=== PATIENT | female | born 1930 | race Caucasian/White ===

== ENCOUNTER 2016-10-07 01:22 | Inpatient (IN) | payer MEDICARE, MEDICAID ==
[~2016-10-07] VITALS: Ht 162.6 cm; Wt 101.6 kg
[~2016-10-07 01:22] MED LIST: ACET-868 GT; ACET500C21 GT; ALBU2.5V11 MC; ATRO2DRO4 RIGHTEYE; BRIM5DRO LEFTEYE; CHLO118M MM; DOCU50LI GT; FAMO-131 GT; HEPA500013 SQ; HYDR-4075 GT; IPRA0.2S18 IH; METO25TA6 GT; MULT-74 GT; PRED5TAB46 OP; SIMV10TA2 GT
[2016-10-07] MEDS ORDERED: DIATR MEGLU/DIATRIZOATE SODIUM 30 ML BOTTLE (GASTROGRAPHIN) ONE (01:25)
[2016-10-07 02:18] LABS: BASOPHILS % (AUTO) 0.2 % (0.0-2.0); DIFF TOTAL % 100 %; EOSINOPHILS # (AUTO) 0.2 /CMM (0.0-0.7); HEMATOCRIT 30 % (33-45); LYMPHOCYTES % (AUTO) 18.2 % (20.0-44.0); MEAN CORPUSCULAR HEMOGLOBIN 31 PG (26.0-33.0); MEAN CORPUSCULAR HGB CONC 33 g/dl (31.0-36.0); MEAN CORPUSCULAR VOLUME 92 fL (82-100); MONOCYTES # (AUTO) 1.5 /CMM (0.1-1.30); MONOCYTES % (AUTO) 8.9 % (2.0-12.0); NEUTROPHILS # (AUTO) 11.8 /CMM (1.8-8.9); NEUTROPHILS % (AUTO) 71.7 % (43.0-81.0); PLATELET COUNT (AUTO) 253 /CMM (150-450); RED BLOOD CELL COUNT(AUTO) 3.27 MIL/uL (4.0-5.2); WHITE BLOOD COUNT (AUTO) 16.5 K/uL (4.3-11.0)
[2016-10-07 02:26] LABS: CALCIUM, SERUM 9.9 mg/dL (8.5-10.1); POTASSIUM 4.3 mmol/L (3.5-5.1)
[2016-10-07] MEDS ORDERED: INSU100V7 SQ (02:57)
[2016-10-07] MEDS ORDERED: OMEP40CA37 GT (02:57)
[2016-10-07] MEDS ORDERED: FERR220S3 GT (02:57)
[2016-10-07] MEDS ORDERED: METO-295 GT (02:57)
[2016-10-07] MEDS ORDERED: LATANOPROST LEFTEYE (02:57)
[2016-10-07] MEDS ORDERED: SITA100T GT (02:57)
[2016-10-07] MEDS ORDERED: NUT.250L18 GT (02:57)
[2016-10-07] MEDS ORDERED: POTA-88 GT (02:57)
[2016-10-07] MEDS ORDERED: LORA2VIA11 IM (02:57)
[2016-10-07] MEDS ORDERED: ACET160E13 GT ×2 (02:57)
[2016-10-07] MEDS ORDERED: ALBU2.5V38 INH (03:12)
[2016-10-07] MEDS ORDERED: INSU100V28 IJ (03:12)
[2016-10-07] MEDS ORDERED: ERYTHROMYCIN GT (03:12)
[2016-10-07] MEDS ORDERED: SIME80TA15 GT (03:35)
[2016-10-07] MEDS ORDERED: MINERAL GT (03:35)
[2016-10-07] MEDS ORDERED: METO5TAB87 GT (03:35)
[2016-10-07] MEDS ORDERED: MULT-30 GT (03:35)
[2016-10-07] MEDS ORDERED: AMIN30LI27 GT (03:35)
[2016-10-07] MEDS ORDERED: VITAMIN GT (03:35)
[2016-10-07 04:33] VITALS: BP 100/68
[2016-10-07] MEDS ORDERED: ZOLPIDEM TARTRATE 5 MG TABLET GT PRN (05:30)
[2016-10-07] MEDS ORDERED: ACETAMINOPHEN 325 MG TABLET PO PRN (05:30)
[2016-10-07] MEDS ORDERED: ONDANSETRON HCL/PF 4 MG/2 ML VIAL IVP PRN (05:30)
[2016-10-07] MEDS: BLOOD SUGAR DIAGNOSTIC 1 EACH STRIP IN SCH ×3 (05:54→17:19)
[2016-10-07] MEDS ORDERED: hydrALAZINE HCL 10 MG TABLET GT PRN (06:00)
[2016-10-07] MEDS ORDERED: DEXTROSE 50%-WATER 50 ML DISP.SYRIN IV PRN (06:00)
[2016-10-07] MEDS ORDERED: ALBUTEROL FS 2.5 MG/3 ML VIAL.NEB INH PRN (06:00)
[2016-10-07] MEDS ORDERED: IPRATROPIUM NEB FS 0.5 MG/2.5 ML AMPUL.NEB IH PRN (06:00)
[2016-10-07] MEDS ORDERED: LEVOFLOXACIN 500 MG /D5W 100ML 100 ML IV ONE (06:08)
[2016-10-07] MEDS ORDERED: IV SET PRIMARY PUMP SET 1 EA INFUS.SET MC ONE (06:11)
[2016-10-07] MEDS ORDERED: IV D5/ 0.9% NACL 1,000 ML IV ONE (06:11)
[2016-10-07] MEDS ORDERED: SECONDARY IV SET 1 EA INFUS.SET MC ONE (06:25)
[2016-10-07] MEDS: LEVOFLOXACIN 500 MG /D5W 100ML 100 ML IV SCH (06:32)
[2016-10-07] MEDS: IV D5/ 0.9% NACL 1,000 ML IV PRN ×2 (06:33→21:14)
[2016-10-07] MEDS ORDERED: PANTOPRAZOLE 40 MG TABLET.DR PO SCH (09:00)
[2016-10-07 09:08] LABS: IRON, SERUM 21 ug/dl (50-175); PERCENT SATURATION 8 % (14-33); TOTAL IRON BINDING CAPACITY 250 ug/dl (250-450)
[2016-10-07 10:17] LABS: ABG BASE EXCESS 10.5 mmol/L; ABG HCO3 35.6 mmol/L; ABG PO2 65.1 mmHg (75.0-100.0); ABG TOTAL HEMOGLOBIN 10.7 G/dL (12.0-16.0); ALLEN TEST Pass; AaDO2 162.6 mmHg; O2Hb 90.2 % (94.0-97.0)
[2016-10-07] MEDS: METOPROLOL TARTRATE 25 MG TABLET GT SCH ×2 (10:30→16:33)
[2016-10-07] MEDS: INSULIN REGULAR, HUMAN 100 UNIT/ML 3 ML VIAL SQ PRN ×2 (11:39→17:19)
[2016-10-07] MEDS ORDERED: METOCLOPRAMIDE HCL 10 MG/10 ML UDC GT SCH (12:00)
[2016-10-07] MEDS: PANTOPRAZOLE 40 MG VIAL IV SCH (13:03)
[2016-10-07] MEDS: METOCLOPRAMIDE HCL 10 MG/2 ML VIAL IV SCH ×2 (13:03→18:36)
[2016-10-07 16:00] VITALS: BP 90/45
[2016-10-07] MEDS: acetaZOLAMIDE 250 MG TABLET GT SCH (16:33)
[2016-10-07 20:23] VITALS: BP 92/50
[2016-10-07] MEDS: FERROUS SULFATE UDC 300 MG/5 ML UDC GT SCH (21:00)
[2016-10-07] MEDS: HEPARIN SODIUM, PORCINE 5000 UNITS/1 ML VIAL SQ SCH (21:29)
[2016-10-07 22:00] VITALS: BP 92/50
[2016-10-07] MEDS: INSULIN DETEMIR 100 UNIT/ML CARTRIDGE SQ SCH (22:00)
[2016-10-08] VITALS (7 sets, daily range): BP systolic 96–131; BP diastolic 46–59
[2016-10-08] MEDS: BLOOD SUGAR DIAGNOSTIC 1 EACH STRIP IN SCH ×5 (00:03→23:28)
[2016-10-08] MEDS: INSULIN REGULAR, HUMAN 100 UNIT/ML 3 ML VIAL SQ PRN ×4 (00:04→17:16)
[2016-10-08] MEDS: METOCLOPRAMIDE HCL 10 MG/2 ML VIAL IV SCH ×4 (00:23→18:11)
[2016-10-08] MEDS ORDERED: LEVOFLOXACIN 500 MG /D5W 100ML 100 ML IV ONE (05:35)
[2016-10-08] MEDS: LEVOFLOXACIN 500 MG /D5W 100ML 100 ML IV SCH (06:13)
[2016-10-08 06:49] LABS: BASOPHILS % (AUTO) 0.4 % (0.0-2.0); DIFF TOTAL % 100 %; EOSINOPHILS # (AUTO) 0.1 /CMM (0.0-0.7); EOSINOPHILS % (AUTO) 1.5 % (0.0-6.0); HEMATOCRIT 26 % (33-45); HEMOGLOBIN 8.3 g/dL (11.5-14.8); LYMPHOCYTES # (AUTO) 1.9 /CMM (0.8-4.8); LYMPHOCYTES % (AUTO) 21.2 % (20.0-44.0); MEAN CORPUSCULAR HEMOGLOBIN 30 PG (26.0-33.0); MEAN CORPUSCULAR HGB CONC 32 g/dl (31.0-36.0); MEAN CORPUSCULAR VOLUME 93 fL (82-100); MONOCYTES % (AUTO) 10.9 % (2.0-12.0); NEUTROPHILS # (AUTO) 5.8 /CMM (1.8-8.9); PLATELET COUNT (AUTO) 214 /CMM (150-450); RED BLOOD CELL COUNT(AUTO) 2.78 MIL/uL (4.0-5.2); WHITE BLOOD COUNT (AUTO) 8.8 K/uL (4.3-11.0)
[2016-10-08 07:18] LABS: BILIRUBIN,TOTAL 0.4 mg/dL (0.2-1.0); CALCIUM, SERUM 9.5 mg/dL (8.5-10.1); CREATININE 1.2 mg/dL (0.6-1.3); PHOSPHORUS 3.1 mg/dL (2.5-4.9); POTASSIUM 4.5 mmol/L (3.5-5.1); TOTAL PROTEIN, SERUM 7.4 g/dL (6.4-8.2)
[2016-10-08] MEDS ORDERED: MULTIVITAMINS,THERAPEUTIC 1 UDTAB TABLET GT SCH (09:00)
[2016-10-08] MEDS: acetaZOLAMIDE 250 MG TABLET GT SCH ×2 (09:07→16:28)
[2016-10-08] MEDS: METOPROLOL TARTRATE 25 MG TABLET GT SCH ×2 (09:07→16:24)
[2016-10-08] MEDS: FERROUS SULFATE UDC 300 MG/5 ML UDC GT SCH ×2 (09:08→23:19)
[2016-10-08] MEDS: HEPARIN SODIUM, PORCINE 5000 UNITS/1 ML VIAL SQ SCH ×2 (09:09→23:28)
[2016-10-08] MEDS: IV D5/ 0.9% NACL 1,000 ML IV PRN (11:41)
[2016-10-08] MEDS: PANTOPRAZOLE 40 MG VIAL IV SCH (12:17)
[2016-10-08] MEDS: INSULIN DETEMIR 100 UNIT/ML CARTRIDGE SQ SCH (22:00)
[2016-10-09] VITALS: BP 117/52
[2016-10-09] MEDS: METOCLOPRAMIDE HCL 10 MG/2 ML VIAL IV SCH ×4 (01:14→18:02)
[2016-10-09 04:00] VITALS: BP 122/59
[2016-10-09] MEDS: BLOOD SUGAR DIAGNOSTIC 1 EACH STRIP IN SCH ×4 (05:36→21:34)
[2016-10-09] MEDS: LEVOFLOXACIN 500 MG /D5W 100ML 100 ML IV SCH (05:36)
[2016-10-09] MEDS: IV D5/ 0.9% NACL 1,000 ML IV PRN ×2 (05:36→19:51)
[2016-10-09 07:02] VITALS: BP 134/61
[2016-10-09 08:00] VITALS: BP 134/61
[2016-10-09] MEDS: FERROUS SULFATE UDC 300 MG/5 ML UDC GT SCH ×2 (09:00→21:00)
[2016-10-09] MEDS: METOPROLOL TARTRATE 25 MG TABLET GT SCH ×2 (09:00→17:00)
[2016-10-09] MEDS: acetaZOLAMIDE 250 MG TABLET GT SCH ×2 (09:00→17:00)
[2016-10-09] MEDS ORDERED: DIATR MEGLU/DIATRIZOATE SODIUM 120 ML BOTTLE (GASTROGRAPHIN) ONE (09:45)
[2016-10-09] MEDS: HEPARIN SODIUM, PORCINE 5000 UNITS/1 ML VIAL SQ SCH ×2 (11:39→21:34)
[2016-10-09] MEDS: PANTOPRAZOLE 40 MG VIAL IV SCH (12:55)
[2016-10-09] MEDS: INSULIN REGULAR, HUMAN 100 UNIT/ML 3 ML VIAL SQ PRN (12:57)
[2016-10-09] MEDS: Z GUARD REMEDY 2 OZ OINT TP SCH (12:58)
[2016-10-09 16:00] VITALS: BP 148/100
[2016-10-09 20:00] VITALS: BP 128/57
[2016-10-09] MEDS: INSULIN DETEMIR 100 UNIT/ML CARTRIDGE SQ SCH (22:00)
[2016-10-10] VITALS: BP 139/60
[2016-10-10] MEDS: METOCLOPRAMIDE HCL 10 MG/2 ML VIAL IV SCH ×4 (02:57→18:50)
[2016-10-10 04:00] VITALS: BP 141/57
[2016-10-10] MEDS: BLOOD SUGAR DIAGNOSTIC 1 EACH STRIP IN SCH ×3 (05:48→17:55)
[2016-10-10] MEDS: LEVOFLOXACIN 500 MG /D5W 100ML 100 ML IV SCH (05:48)
[2016-10-10 07:06] VITALS: BP 133/59
[2016-10-10 08:00] VITALS: BP 133/59
[2016-10-10] MEDS: HEPARIN SODIUM, PORCINE 5000 UNITS/1 ML VIAL SQ SCH ×2 (08:06→20:41)
[2016-10-10] MEDS: Z GUARD REMEDY 2 OZ OINT TP PRN (08:10)
[2016-10-10] MEDS: FERROUS SULFATE UDC 300 MG/5 ML UDC GT SCH ×2 (08:12→20:50)
[2016-10-10] MEDS: METOPROLOL TARTRATE 25 MG TABLET GT SCH ×2 (08:12→17:00)
[2016-10-10] MEDS: acetaZOLAMIDE 250 MG TABLET GT SCH ×2 (08:12→17:00)
[2016-10-10] MEDS: Z GUARD REMEDY 2 OZ OINT TP SCH (09:03)
[2016-10-10] MEDS: IV D5/ 0.9% NACL 1,000 ML IV PRN (11:34)
[2016-10-10] MEDS: PANTOPRAZOLE 40 MG VIAL IV SCH (12:05)
[2016-10-10] MEDS: INSULIN REGULAR, HUMAN 100 UNIT/ML 3 ML VIAL SQ PRN (12:05)
[2016-10-10 16:00] VITALS: BP 117/55
[2016-10-10 20:00] VITALS: BP 136/55
[2016-10-10] MEDS: INSULIN DETEMIR 100 UNIT/ML CARTRIDGE SQ SCH (20:53)
[2016-10-11] VITALS (7 sets, daily range): BP systolic 115–157; BP diastolic 50–88
[2016-10-11] MEDS: BLOOD SUGAR DIAGNOSTIC 1 EACH STRIP IN SCH ×5 (00:41→23:55)
[2016-10-11] MEDS: METOCLOPRAMIDE HCL 10 MG/2 ML VIAL IV SCH ×4 (00:42→18:03)
[2016-10-11] MEDS: IV D5/ 0.9% NACL 1,000 ML IV PRN ×2 (00:48→15:23)
[2016-10-11] MEDS: LEVOFLOXACIN (250MG) 250 MG TABLET PO SCH (05:00)
[2016-10-11] MEDS: FERROUS SULFATE UDC 300 MG/5 ML UDC GT SCH ×2 (09:00→21:00)
[2016-10-11] MEDS: acetaZOLAMIDE 250 MG TABLET GT SCH ×2 (09:00→17:00)
[2016-10-11] MEDS: METOPROLOL TARTRATE 25 MG TABLET GT SCH ×2 (09:00→17:00)
[2016-10-11] MEDS: HEPARIN SODIUM, PORCINE 5000 UNITS/1 ML VIAL SQ SCH ×2 (09:26→22:28)
[2016-10-11] MEDS: Z GUARD REMEDY 2 OZ OINT TP SCH (09:27)
[2016-10-11] MEDS: PANTOPRAZOLE 40 MG VIAL IV SCH (12:36)
[2016-10-11] MEDS: INSULIN REGULAR, HUMAN 100 UNIT/ML 3 ML VIAL SQ PRN (13:02)
[2016-10-11] MEDS: INSULIN DETEMIR 100 UNIT/ML CARTRIDGE SQ SCH (22:00)
[2016-10-12] VITALS: BP 147/57
[2016-10-12] MEDS: INSULIN REGULAR, HUMAN 100 UNIT/ML 3 ML VIAL SQ PRN ×3 (00:17→12:33)
[2016-10-12 00:34] VITALS: BP 146/57
[2016-10-12] MEDS: METOCLOPRAMIDE HCL 10 MG/2 ML VIAL IV SCH ×4 (01:46→18:50)
[2016-10-12 04:00] VITALS: BP 123/60
[2016-10-12] MEDS: LEVOFLOXACIN (250MG) 250 MG TABLET PO SCH (05:00)
[2016-10-12] MEDS: IV D5/ 0.9% NACL 1,000 ML IV PRN (05:00)
[2016-10-12] MEDS: BLOOD SUGAR DIAGNOSTIC 1 EACH STRIP IN SCH ×3 (05:35→18:09)
[2016-10-12 07:13] VITALS: BP 107/43
[2016-10-12] MEDS: FERROUS SULFATE UDC 300 MG/5 ML UDC GT SCH ×2 (09:00→21:07)
[2016-10-12] MEDS: acetaZOLAMIDE 250 MG TABLET GT SCH ×2 (09:00→17:00)
[2016-10-12] MEDS: Z GUARD REMEDY 2 OZ OINT TP SCH (09:01)
[2016-10-12] MEDS: HEPARIN SODIUM, PORCINE 5000 UNITS/1 ML VIAL SQ SCH ×2 (09:02→21:08)
[2016-10-12 12:08] LABS: CALCIUM, SERUM 9.3 mg/dL (8.5-10.1); CREATININE 0.8 mg/dL (0.6-1.3)
[2016-10-12 12:13] LABS: POTASSIUM 2.8 mmol/L (3.5-5.1)
[2016-10-12] MEDS: PANTOPRAZOLE 40 MG VIAL IV SCH (12:29)
[2016-10-12] MEDS ORDERED: SECONDARY IV SET 1 EA INFUS.SET MC ONE (12:55)
[2016-10-12] MEDS ORDERED: IV SET PRIMARY PUMP SET 1 EA INFUS.SET MC ONE (12:56)
[2016-10-12] MEDS: POTASSIUM CL. PREMIX PERIPHER. 50 ML IV SCH ×6 (12:58→22:56)
[2016-10-12] MEDS: Magnesium 1GM/D5W 100ML PREMIX 100 ML IV SCH ×3 (13:56→19:23)
[2016-10-12] MEDS ORDERED: DIATR MEGLU/DIATRIZOATE SODIUM 30 ML BOTTLE (GASTROGRAPHIN) ONE (14:56)
[2016-10-12 16:00] VITALS: BP 125/59
[2016-10-12 19:18] LABS: BASOPHILS % (AUTO) 0.2 % (0.0-2.0); DIFF TOTAL % 100 %; EOSINOPHILS # (AUTO) 0.2 /CMM (0.0-0.7); EOSINOPHILS % (AUTO) 2.7 % (0.0-6.0); HEMATOCRIT 29 % (33-45); HEMOGLOBIN 9.1 g/dL (11.5-14.8); LYMPHOCYTES # (AUTO) 1.5 /CMM (0.8-4.8); LYMPHOCYTES % (AUTO) 19.6 % (20.0-44.0); MEAN CORPUSCULAR HEMOGLOBIN 30 PG (26.0-33.0); MEAN CORPUSCULAR HGB CONC 32 g/dl (31.0-36.0); MEAN CORPUSCULAR VOLUME 93 fL (82-100); MONOCYTES # (AUTO) 0.5 /CMM (0.1-1.30); MONOCYTES % (AUTO) 6.9 % (2.0-12.0); NEUTROPHILS # (AUTO) 5.5 /CMM (1.8-8.9); NEUTROPHILS % (AUTO) 70.6 % (43.0-81.0); PLATELET COUNT (AUTO) 205 /CMM (150-450); RED BLOOD CELL COUNT(AUTO) 3.08 MIL/uL (4.0-5.2); WHITE BLOOD COUNT (AUTO) 7.8 K/uL (4.3-11.0)
[2016-10-12 19:32] LABS: BILIRUBIN,TOTAL 0.4 mg/dL (0.2-1.0); CALCIUM, SERUM 9.3 mg/dL (8.5-10.1); CREATININE 0.8 mg/dL (0.6-1.3); POTASSIUM 3.3 mmol/L (3.5-5.1); TOTAL PROTEIN, SERUM 7.2 g/dL (6.4-8.2)
[2016-10-12 20:00] VITALS: BP 152/50
[2016-10-12 21:01] LABS: CALCIUM, SERUM 9.1 mg/dL (8.5-10.1); CREATININE 0.8 mg/dL (0.6-1.3); POTASSIUM 3.1 mmol/L (3.5-5.1)
[2016-10-12 22:05] LABS: BAND % (MANUAL) 2 % (0.0-5.0); EOSINOPHILS % (MANUAL) 1 % (0-4); LYMPHOCYTES % (MANUAL) 21 % (16-48)
[2016-10-12 22:06] LABS: ANISOCYTOSIS 1+; PLATELET ESTIMATE ADEQUATE
[2016-10-13] VITALS (8 sets, daily range): BP systolic 126–169; BP diastolic 48–89
[2016-10-13] MEDS: BLOOD SUGAR DIAGNOSTIC 1 EACH STRIP IN SCH ×4 (00:07→17:22)
[2016-10-13] MEDS ORDERED: POTASSIUM CL. PREMIX PERIPHER. 100 ML ONE (00:10)
[2016-10-13] MEDS: POTASSIUM CL. PREMIX PERIPHER. 50 ML IV SCH ×2 (00:14→01:30)
[2016-10-13] MEDS: METOCLOPRAMIDE HCL 10 MG/2 ML VIAL IV SCH ×4 (00:27→19:59)
[2016-10-13] MEDS: Magnesium 1GM/D5W 100ML PREMIX 100 ML IV SCH (02:35)
[2016-10-13] MEDS: LEVOFLOXACIN (250MG) 250 MG TABLET PO SCH (05:00)
[2016-10-13 06:34] LABS: BASOPHILS % (AUTO) 0.2 % (0.0-2.0); DIFF TOTAL % 100 %; EOSINOPHILS # (AUTO) 0.2 /CMM (0.0-0.7); EOSINOPHILS % (AUTO) 2.9 % (0.0-6.0); HEMATOCRIT 27 % (33-45); HEMOGLOBIN 8.5 g/dL (11.5-14.8); LYMPHOCYTES # (AUTO) 1.5 /CMM (0.8-4.8); LYMPHOCYTES % (AUTO) 19.4 % (20.0-44.0); MEAN CORPUSCULAR HEMOGLOBIN 30 PG (26.0-33.0); MEAN CORPUSCULAR HGB CONC 32 g/dl (31.0-36.0); MEAN CORPUSCULAR VOLUME 92 fL (82-100); MONOCYTES # (AUTO) 0.4 /CMM (0.1-1.30); MONOCYTES % (AUTO) 5.9 % (2.0-12.0); NEUTROPHILS # (AUTO) 5.4 /CMM (1.8-8.9); NEUTROPHILS % (AUTO) 71.6 % (43.0-81.0); PLATELET COUNT (AUTO) 201 /CMM (150-450); RED BLOOD CELL COUNT(AUTO) 2.87 MIL/uL (4.0-5.2); WHITE BLOOD COUNT (AUTO) 7.6 K/uL (4.3-11.0)
[2016-10-13 07:12] LABS: CALCIUM, SERUM 9.1 mg/dL (8.5-10.1); CREATININE 0.8 mg/dL (0.6-1.3); PHOSPHORUS 2.6 mg/dL (2.5-4.9); POTASSIUM 3.4 mmol/L (3.5-5.1)
[2016-10-13] MEDS: FERROUS SULFATE UDC 300 MG/5 ML UDC GT SCH ×2 (08:21→20:17)
[2016-10-13] MEDS: Z GUARD REMEDY 2 OZ OINT TP SCH (08:21)
[2016-10-13] MEDS: acetaZOLAMIDE 250 MG TABLET GT SCH ×2 (08:21→16:14)
[2016-10-13] MEDS: HEPARIN SODIUM, PORCINE 5000 UNITS/1 ML VIAL SQ SCH ×2 (10:15→20:14)
[2016-10-13] MEDS ORDERED: IV SET PRIMARY PUMP SET 1 EA INFUS.SET MC ONE (11:09)
[2016-10-13] MEDS: PANTOPRAZOLE 40 MG VIAL IV SCH (11:52)
[2016-10-13] MEDS ORDERED: DIATR MEGLU/DIATRIZOATE SODIUM 30 ML BOTTLE (GASTROGRAPHIN) ONE (12:45)
[2016-10-13] MEDS: Potassium Chloride 30 MEQ in IV D5W 1,000 ML IV PRN (15:43)
[2016-10-13 18:48] LABS: CALCIUM, SERUM 8.7 mg/dL (8.5-10.1); CREATININE 0.8 mg/dL (0.6-1.3); POTASSIUM 3.8 mmol/L (3.5-5.1)
[2016-10-14] VITALS (8 sets, daily range): BP systolic 114–137; BP diastolic 51–88
[2016-10-14] MEDS: METOCLOPRAMIDE HCL 10 MG/2 ML VIAL IV SCH ×4 (00:26→18:22)
[2016-10-14] MEDS: BLOOD SUGAR DIAGNOSTIC 1 EACH STRIP IN SCH ×4 (00:28→17:23)
[2016-10-14] MEDS: Potassium Chloride 30 MEQ in IV D5W 1,000 ML IV PRN (03:58)
[2016-10-14] MEDS: LEVOFLOXACIN (250MG) 250 MG TABLET PO SCH (05:00)
[2016-10-14] MEDS: acetaZOLAMIDE 250 MG TABLET GT SCH ×2 (09:00→17:00)
[2016-10-14] MEDS: FERROUS SULFATE UDC 300 MG/5 ML UDC GT SCH ×2 (09:00→20:27)
[2016-10-14] MEDS: Z GUARD REMEDY 2 OZ OINT TP PRN (09:46)
[2016-10-14] MEDS: HEPARIN SODIUM, PORCINE 5000 UNITS/1 ML VIAL SQ SCH ×2 (09:46→20:26)
[2016-10-14] MEDS: Z GUARD REMEDY 2 OZ OINT TP SCH (09:47)
[2016-10-14] MEDS ORDERED: ROCURONIUM BROMIDE 50 MG/5 ML ONE (11:36)
[2016-10-14 11:55] LABS: CALCIUM, SERUM 8.9 mg/dL (8.5-10.1); CREATININE 0.8 mg/dL (0.6-1.3)
[2016-10-14] MEDS: INSULIN REGULAR, HUMAN 100 UNIT/ML 3 ML VIAL SQ PRN (12:12)
[2016-10-14] MEDS: PANTOPRAZOLE 40 MG VIAL IV SCH (12:14)
[2016-10-14] MEDS ORDERED: ANESTHESIA TRAY IN PYXIS 1 EA TRAY MC ONE (14:28)
[2016-10-14] MEDS: IV NS 0.9% 1,000 ML IV SCH (15:28)
[2016-10-15] VITALS (15 sets, daily range): BP systolic 115–158; BP diastolic 41–86
[2016-10-15] MEDS: METOCLOPRAMIDE HCL 10 MG/2 ML VIAL IV SCH ×4 (00:07→18:01)
[2016-10-15] MEDS: BLOOD SUGAR DIAGNOSTIC 1 EACH STRIP IN SCH ×4 (00:27→17:56)
[2016-10-15] MEDS: LEVOFLOXACIN (250MG) 250 MG TABLET PO SCH (04:08)
[2016-10-15 08:07] LABS: CALCIUM, SERUM 8.6 mg/dL (8.5-10.1); CREATININE 0.7 mg/dL (0.6-1.3); POTASSIUM 2.9 mmol/L (3.5-5.1)
[2016-10-15] MEDS: Z GUARD REMEDY 2 OZ OINT TP SCH (08:34)
[2016-10-15] MEDS: IV NS 0.9% 1,000 ML IV SCH (08:35)
[2016-10-15] MEDS: acetaZOLAMIDE 250 MG TABLET GT SCH ×2 (09:00→17:00)
[2016-10-15] MEDS: FERROUS SULFATE UDC 300 MG/5 ML UDC GT SCH ×2 (09:00→20:30)
[2016-10-15] MEDS ORDERED: POTASSIUM PHOSPHATE MM 15 MMOL in IV D5W 250 ML IV SCH (10:00)
[2016-10-15] MEDS: Magnesium 1GM/D5W 100ML PREMIX 100 ML IV SCH ×2 (10:29→13:19)
[2016-10-15] MEDS ORDERED: POTASSIUM CHLORIDE 20 MEQ TAB.PRT.SR PO ONE (10:30)
[2016-10-15] MEDS ORDERED: CLINDAMYCIN 900 MG/6 ML VIAL ONE (11:35)
[2016-10-15] MEDS ORDERED: IV SET PRIMARY PUMP SET 1 EA INFUS.SET MC ONE (11:36)
[2016-10-15] MEDS: POTASSIUM CL. PREMIX PERIPHER. 50 ML IV SCH ×2 (11:40→16:03)
[2016-10-15] MEDS: IV D5/0.45 NACL 1,000 ML IV PRN (11:40)
[2016-10-15] MEDS: PANTOPRAZOLE 40 MG VIAL IV SCH (13:28)
[2016-10-15] MEDS ORDERED: DIATR MEGLU/DIATRIZOATE SODIUM 120 ML BOTTLE (GASTROGRAPHIN) ONE ×2 (13:33→15:02)
[2016-10-15] MEDS ORDERED: ANESTHESIA TRAY IN PYXIS 1 EA TRAY MC ONE (13:54)
[2016-10-15] MEDS: POTASSIUM PHOSPHATE MM 7.5 MMOL in IV D5W 100 ML IV SCH ×2 (16:58→20:29)
[2016-10-15] MEDS ORDERED: SECONDARY IV SET 1 EA INFUS.SET MC ONE (17:41)
[2016-10-15] MEDS: INSULIN REGULAR, HUMAN 100 UNIT/ML 3 ML VIAL SQ PRN (17:58)
[2016-10-16 00:21] VITALS: BP 122/51
[2016-10-16] MEDS: METOCLOPRAMIDE HCL 10 MG/2 ML VIAL IV SCH ×4 (02:23→18:00)
[2016-10-16 04:06] VITALS: BP 120/58
[2016-10-16] MEDS: LEVOFLOXACIN (250MG) 250 MG TABLET PO SCH (05:00)
[2016-10-16] MEDS: BLOOD SUGAR DIAGNOSTIC 1 EACH STRIP IN SCH ×4 (05:32→17:55)
[2016-10-16] MEDS ORDERED: SECONDARY IV SET 1 EA INFUS.SET MC ONE (05:43)
[2016-10-16] MEDS ORDERED: LEVOFLOXACIN 500 MG /D5W 100ML 100 ML IV ONE (05:45)
[2016-10-16] MEDS: IV D5/0.45 NACL 1,000 ML IV PRN (05:51)
[2016-10-16] MEDS ORDERED: ACETAMINOPHEN 325 MG/SUPP.RECT RC PRN (06:00)
[2016-10-16] MEDS ORDERED: LEVOFLOXACIN 500 MG /D5W 100ML 500 MG in PREMIX 1 EA IV SCH (06:30)
[2016-10-16 06:52] LABS: CALCIUM, SERUM 8.7 mg/dL (8.5-10.1); CREATININE 0.7 mg/dL (0.6-1.3); PHOSPHORUS 4.2 mg/dL (2.5-4.9); POTASSIUM 3.6 mmol/L (3.5-5.1)
[2016-10-16 07:07] LABS: BASOPHILS % (AUTO) 0.3 % (0.0-2.0); DIFF TOTAL % 100 %; EOSINOPHILS # (AUTO) 0.2 /CMM (0.0-0.7); EOSINOPHILS % (AUTO) 3.1 % (0.0-6.0); HEMATOCRIT 28 % (33-45); HEMOGLOBIN 9.1 g/dL (11.5-14.8); LYMPHOCYTES # (AUTO) 0.8 /CMM (0.8-4.8); LYMPHOCYTES % (AUTO) 12.4 % (20.0-44.0); MEAN CORPUSCULAR HEMOGLOBIN 30 PG (26.0-33.0); MEAN CORPUSCULAR HGB CONC 32 g/dl (31.0-36.0); MEAN CORPUSCULAR VOLUME 92 fL (82-100); MONOCYTES # (AUTO) 0.3 /CMM (0.1-1.30); MONOCYTES % (AUTO) 4.2 % (2.0-12.0); NEUTROPHILS # (AUTO) 5.2 /CMM (1.8-8.9); PLATELET COUNT (AUTO) 182 /CMM (150-450); RED BLOOD CELL COUNT(AUTO) 3.06 MIL/uL (4.0-5.2); WHITE BLOOD COUNT (AUTO) 6.4 K/uL (4.3-11.0)
[2016-10-16 07:11] VITALS: BP 132/65
[2016-10-16 08:00] VITALS: BP 132/65
[2016-10-16] MEDS: Z GUARD REMEDY 2 OZ OINT TP SCH (08:15)
[2016-10-16] MEDS ORDERED: ACETAMINOPHEN 650 MG/SUPP.RECT RC PRN (08:30)
[2016-10-16] MEDS: FERROUS SULFATE UDC 300 MG/5 ML UDC GT SCH (09:00)
[2016-10-16] MEDS: acetaZOLAMIDE 250 MG TABLET GT SCH ×2 (09:00→18:00)
[2016-10-16] MEDS ORDERED: METO5VIA6 IV (10:07)
[2016-10-16] MEDS: INSULIN REGULAR, HUMAN 100 UNIT/ML 3 ML VIAL SQ PRN ×2 (11:52→17:57)
[2016-10-16 12:00] VITALS: BP 134/68
[2016-10-16] MEDS: PANTOPRAZOLE 40 MG VIAL IV SCH (12:13)
[2016-10-16] MEDS ORDERED: GLYTROL 1,000 ML BAG GT SCH (12:30)
[2016-10-16 16:00] VITALS: BP 136/71
[2016-10-17] MEDS ORDERED: LEVOFLOXACIN 250 MG /D5W 50 ML 250 MG in PREMIX 1 EA IV SCH (06:00)
== END 2016-10-16 19:40 | DRG 393 ==
LOC: ER 01:24 → MED 03:23 → TELE 04:05
PROVIDERS: ADMIT Internal Medicine; ATTEND Nurse Practitioner Acute Care
PROC: 5A1955Z Respiratory Ventilation, Greater than 96 Consecutive Hours (ICD-10-PCS; principal; 2016-10-07)
PROC: 05H533Z Insertion of Infusion Device into Right Subclavian Vein, Percutaneous Approach (ICD-10-PCS; 2016-10-12)
PROC: 0DBP8ZX Excision of Rectum, Via Natural or Artificial Opening Endoscopic, Diagnostic (ICD-10-PCS; 2016-10-13)
PROC: 0DBE8ZX Excision of Large Intestine, Via Natural or Artificial Opening Endoscopic, Diagnostic (ICD-10-PCS; 2016-10-13)
PROC: 0DH63UZ Insertion of Feeding Device into Stomach, Percutaneous Approach (ICD-10-PCS; 2016-10-15)
DX: K94.23 Gastrostomy malfunction (principal); N17.0 Acute kidney failure with tubular necrosis; G93.40 Encephalopathy, unspecified; K56.7 Ileus, unspecified; J96.12 Chronic respiratory failure with hypercapnia; Z99.11 Dependence on respirator [ventilator] status; E66.2 Morbid (severe) obesity with alveolar hypoventilation; E87.0 Hyperosmolality and hypernatremia; E87.1 Hypo-osmolality and hyponatremia; E11.9 Type 2 diabetes mellitus without complications; I10 Essential (primary) hypertension; Y92.129 Unspecified place in nursing home as the place of occurrence of the external cause; Y83.3 Surgical operation with formation of external stoma as the cause of abnormal reaction of the patient, or of later complication, without mention of misadventure at the time of the procedure; Z93.0 Tracheostomy status; R13.10 Dysphagia, unspecified; J44.9 Chronic obstructive pulmonary disease, unspecified; K62.1 Rectal polyp; E86.0 Dehydration; D50.9 Iron deficiency anemia, unspecified; Z96.642 Presence of left artificial hip joint; K64.8 Other hemorrhoids; D63.8 Anemia in other chronic diseases classified elsewhere; E87.5 Hyperkalemia; E87.6 Hypokalemia; F03.90 Unspecified dementia, unspecified severity, without behavioral disturbance, psychotic disturbance, mood disturbance, and anxiety; Z68.38 Body mass index [BMI] 38.0-38.9, adult; Z90.710 Acquired absence of both cervix and uterus
CPT/HCPCS: 31720; 36415; 36600; 43246; 71010-TC; 74000-TC; 74250-TC; 74280-TC; 80048-TC; 80053-TC; 82272-TC; 82962-TC; 83540-TC; 83735-TC; 84100-TC; 85025-TC; 87040-TC; 87081-TC; 88305-TC; 94003-TC; 99082-TC; A4216; A4606; A6253; A6403; A7526; C9113; J1644; J1815; J1956; J2765; J3475; J3480; J3490; J7030; J7042; J7060; J7070; Q9963; Z7610